=== PATIENT | female | born 1990 | race African-American/Black ===

== ENCOUNTER 2024-12-02 21:13 | Emergency (ER) | payer OTHER ==
[~2024-12-02] VITALS: Ht 157.5 cm; Wt 119.7 kg
[2024-12-02 21:40] VITALS: TEMP 98.2
[2024-12-02 22:40] LABS: CORONAVIRUS COVID-19 AG NEGATIVE (NEGATIVE)
[2024-12-02 22:48] LABS: BASOPHILS % 0.1 % (0.0-1.0); EOSINOPHILS % 0.0 % (0.0-6.0); LYMPHOCYTES % 25.8 % (18.0-39.1); MONOCYTES % 8.0 % (4.4-11.3); NEUTROPHILS % 66.0 % (38.7-80.0); RED CELL DISTRIBUTION WIDTH 19.7 % (11.7-14.4)
[2024-12-02 22:57] LABS: LEUKOCYTE ESTERASE ,URINE NEGATIVE (NEGATIVE); PROTEIN,URINE DIPSTICK NEGATIVE (NEGATIVE)
[2024-12-02 22:58] LABS: AMPHETAMINES SCREEN,URINE NEGATIVE (NEGATIVE); CANNABINOIDS SCREEN,URINE POSITIVE (NEGATIVE); COCAINE SCREEN,URINE NEGATIVE (NEGATIVE); METHADONE SCREEN, URINE NEGATIVE (NEGATIVE); OPIATES SCREEN,URINE NEGATIVE (NEGATIVE); URINE UROBILINOGEN 0.2 mg/dL (0.2 - 1)
[2024-12-02 23:04] LABS: WBC,URINE (MAN) 0-5 /HPF (0-5); YEAST,URINE MODERATE
[2024-12-02 23:05] LABS: EPITHELIAL CELLS,URINE MANY /LPF
[2024-12-02 23:08] LABS: EST GLOMERULAR FILTRATION RATE 102.0 ML/MIN (>=60)
[2024-12-02] MEDS: SODIUM CHLORIDE 0.9% 1000ML 1,000 ML IV STA (23:16)
[2024-12-02] MEDS: ONDANSETRON HCL INJ 2MG/ML 2ML 2 MG/ML VIAL IV STA (23:17)
[2024-12-02] MEDS: MAGNESIUM/ALUMINUM/SIMETHICONE 30 ML UDC PO STA (23:18)
[2024-12-02] MEDS: LIDOCAINE VISC 2% SOLN 15 ML UDC PO STA (23:18)
[2024-12-02] MEDS: BELLADONNA ALK/PHENOBARBITAL 5 ML UDC PO ONE (23:18)
[2024-12-02] MEDS ORDERED: IOPAMIDOL 370 MG/ML 100 ML INFUS..BTL INJ ONE (23:21)
[2024-12-03] VITALS: PULSE 75; RESP 16
[2024-12-03] MEDS: METOCLOPRAMIDE HCL 10 MG/2ML VIAL IV STA (00:16)
[2024-12-03] MEDS ORDERED: ONDANSETRON ODT4 MG PO (00:51)
[2024-12-03] MEDS ORDERED: PROTONIX20 MG PO (00:51)
[2024-12-03] MEDS ORDERED: FIORICET 50-301 EACH PO (00:52)
[2024-12-03 01:34] VITALS: BP 133/83; PULSE 66; RESP 15; TEMP 98.2; O2SAT 100
== END 2024-12-03 01:14 | disposition home or self-care (01) ==
LOC: ER 21:22
DX: R11.2 Nausea with vomiting, unspecified (principal); K20.90 Esophagitis, unspecified without bleeding; R10.33 Periumbilical pain; D64.9 Anemia, unspecified; R51.9 Headache, unspecified; F12.10 Cannabis abuse, uncomplicated; Z11.52 Encounter for screening for COVID-19
CPT/HCPCS: 36415; 74177; 80053; 80307; 81001; 83690; 85025; 87428; 99284; J2405; J2765; J7030; Q9967